=== PATIENT | female | born 1930 | race Asian ===

== ENCOUNTER 2016-10-29 23:48 | Emergency (ER) | payer MEDICARE, BC ==
[~2016-10-29] VITALS: Ht 152.4 cm; Wt 52.0 kg
[~2016-10-29 23:48] MED LIST: IOHEXOL-300 100 ML BOTTLE ONE; SODIUM CHLORIDE 0.9% 10ML VIAL ONE
[2016-10-30] MEDS ORDERED: SODIUM CHLORIDE 0.9% 1,000 ML IV ONE (00:14)
[2016-10-30] MEDS ORDERED: MORPHINE SULFATE 2 MG/ML CPJ (NOT FOR IM USE) IV ONE (00:15)
[2016-10-30 00:38] LABS: BASOPHILS % 0.6 % (0.0-2.0); EOSINOPHILS % 1.4 % (0.0-5.0); HEMATOCRIT. 39.7 % (36.0-48.0); HEMOGLOBIN. 13.2 g/dL (12.0-16.0); LYMPHOCYTES % 23.4 % (20.0-50.0); MEAN CORPUSCULAR HEMOGLOBIN 30.2 pg (28.0-32.0); MEAN CORPUSCULAR HGB CONC 33.3 g/dL (31.0-37.0); MEAN CORPUSCULAR VOLUME 90.7 fL (81.0-99.0); MEAN PLATELET VOLUME 7.4 fl (7.4-10.4); MONOCYTES % 8.7 % (2.0-8.0); NEUTROPHILS % 65.9 % (40.0-76.0); PLATELET 238 x1000/uL (130-400); RED BLOOD CELL COUNT 4.38 mill/uL (4.2-5.4); RED CELL DISTRIBUTION WIDTH 13.2 % (11.6-14.6); WHITE BLOOD COUNT 7.4 x1000/uL (4.5-11.0)
[2016-10-30 00:43] LABS: PROTHROMBIN TIME 10.3 sec
[2016-10-30 00:49] LABS: ALANINE AMINOTRANSFERASE 27 IU/L (13-61); ALBUMIN 3.7 g/dL (3.4-5.0); ANION GAP 12; CALCIUM 8.8 mg/dL (8.5-10.1); CARBON DIOXIDE 27 mEq/L (21-32); CHLORIDE 105 mEq/L (98-107); INDEX HEMOLYSI 1 (1-3); INDEX ICTERIC 1 (1-4); INDEX LIPEMIC 1 (1-3); UREA NITROGEN BLOOD 23 mg/dL (7-21); eGFR > 60 mL/min (>60)
[2016-10-30 00:51] LABS: TROPONIN I 0.04 ng/mL (0.00-0.04)
[2016-10-30 04:34] VITALS: BP 114/58
== END 2016-10-30 04:34 | disposition home or self-care (01) ==
LOC: ER 23:49
DX: S20.219A Contusion of unspecified front wall of thorax, initial encounter (principal); S00.83XA Contusion of other part of head, initial encounter; E86.0 Dehydration; I10 Essential (primary) hypertension; R10.11 Right upper quadrant pain; M54.2 Cervicalgia; V43.52XA Car driver injured in collision with other type car in traffic accident, initial encounter; Y93.89 Activity, other specified; Y99.8 Other external cause status; Y92.89 Other specified places as the place of occurrence of the external cause
CPT/HCPCS: 36415; 71010; 71260; 72125; 72170; 74177; 80053; 84484; 85025; 85610; 93005; 96361; 96374; 99285; A4216; J2270; J7030; Q9967